=== PATIENT | female | born 2000 | race Caucasian/White ===

== ENCOUNTER → 2020-03-29 | Outpatient (CLI) | payer OTHER ==
[~2020-03-29] MED LIST: BENADRYL25 MG PO; MEDROL DOSEPAK 24 MG PO; PEPCID20 MG PO; ZOFRAN4 MG PO
== END ==
LOC: US 12-11 15:00
DX: N63.21 Unspecified lump in the left breast, upper outer quadrant (principal); N64.4 Mastodynia
CPT/HCPCS: 76641-LT

== ENCOUNTER 2020-05-04 07:37 | Emergency (ER) | payer OTHER ==
[~2020-05-04 07:37] MED LIST changes: -BENADRYL25 MG PO; -MEDROL DOSEPAK 24 MG PO; -PEPCID20 MG PO
[2020-05-04 08:49] LABS: HEMOGLOBIN 13.6 gm/dl (12.3-15.3); RED BLOOD COUNT 4.48 M/UL (4.00-5.10); WHITE BLOOD COUNT 6.3 K/UL (4.5-11.0)
[2020-05-04 09:31] LABS: BUN/CREATININE RATIO 19 (0-10)
[2020-05-04] MEDS ORDERED: PEPCID20 MG PO (10:07)
[2020-05-04] MEDS ORDERED: BENADRYL25 MG PO (10:07)
[2020-05-04] MEDS ORDERED: MEDROL DOSEPAK 24 MG PO (10:07)
== END 2020-05-04 10:21 | disposition home or self-care (01) ==
LOC: ER1 07:37
PROVIDERS: Internal Medicine
DX: T78.40XA Allergy, unspecified, initial encounter (principal); X58.XXXA Exposure to other specified factors, initial encounter
CPT/HCPCS: 80053; 85025; 96365; 96375; 99283; J1100; J1200; J7120